=== PATIENT | male | born 2000 ===

== ENCOUNTER 2024-06-17 20:20 | Emergency (ER) | payer SELFPAY ==
[~2024-06-17] VITALS: Ht 172.7 cm; Wt 63.5 kg
[2024-06-17] MEDS ORDERED: Ketorolac Tromethamine 10 MG Tab PO ONE (20:50)
== END 2024-06-17 20:55 | disposition home or self-care (01) ==
LOC: ER 20:20
DX: K08.89 Other specified disorders of teeth and supporting structures (principal)
CPT/HCPCS: 99282; A9270